=== PATIENT | male | born 1990 | race Caucasian/White ===

== ENCOUNTER 2018-02-11 13:14 | Inpatient (IN) | payer OTHER, MEDICAID, SELFPAY ==
[2018-02-11] VITALS (18 sets, daily range): BP systolic 108–142; BP diastolic 62–96; PULSE 52–109; RESP 10–24; TEMP 36.6–37.4; O2SAT 94–100; BMI 28.9
--- NOTE | 2018-02-11 | PATH_ITS ---
[facility] Accession Number: [id number] . 01 Material submitted: . APPENDIX . 02 Diagnosis: Appendix, Appendectomy: Acute appendicitis with perforation and serositis. Negative for neoplasm. I/02/14/2018 . 02 Electronically signed: . Caleb Hughes MD, PhD, Pathologist NPI- [id number] . 01 Gross description: . Received in formalin, labeled appendix, is an intact appendix (length-8.7 cm, diameter-0.9 cm) with wahl-bansal smooth dull serosa and attached mesoappendix (up to 1.6 cm in depth). The resection margin is received opened. The lumen contains brown solid soft material. The wall is up to 0.3 cm thick. A possible perforation is identified 4.2 cm from the tip opening into the mesoappendix. No nodules, masses or lesions are identified. The resection margin is inked black. Section code: (A1) resection margin en face and three additional serial sections; (A2) one-half of the bivalved tip. ([id number]) /MRV . 02 Pathologist provided ICD-10: K35.2 . 02 CPT . 758493 Performed at: 01 [facility] [address], [place], [place] [id number] MD Reggie Schofield MD Phone: [phone] Performed at: 02 [facility] [address] [place], [place] [id number] MD Luan Carlin MD Phone: [phone]
--- NOTE | 2018-02-11 13:29 | DI.CT.S_ITS ---
PROCEDURE: CT ABDOMEN PELVIS W CON INDICATIONS: Right-sided abdominal pain TECHNIQUE: After the administration of intravenous contrast, 5 mm thick sections acquired from the diaphragm to the symphysis. 5 mm coronal and sagittal reformats were acquired. For radiation dose reduction, the following was used: automated exposure control, adjustment of mA and/or kV according to patient size. COMPARISON: None. FINDINGS: Image quality: Excellent. ABDOMEN: Lung bases: Lung bases are clear. Heart size is normal. Solid organs: Liver is normal in size and enhancement. Gallbladder is within normal limits. Biliary system is non dilated. Pancreas enhances normally. Spleen is normal in size and enhancement. No adrenal nodules. Kidneys demonstrate normal size and enhancement, without hydronephrosis. Peritoneum and bowel: Bowel loops demonstrate normal wall thickness and caliber. No free fluid or air. The appendix is enlarged measuring up to 1 cm in diameter. Mild inflammatory changes and trace fluid noted adjacent to the enlarged appendix. 5 mm 6 mm appendicolith noted in the base of the appendix. Nodes and vessels: No retroperitoneal or mesenteric adenopathy by size criteria. Aorta and inferior vena cava are normal in size. Miscellaneous: No ventral hernias. PELVIS: Genitourinary: Bladder wall thickness is normal. Miscellaneous: No inguinal hernias or adenopathy. Bones: No suspicious bony lesions. No vertebral body compression fractures. IMPRESSION: 1. Findings compatible with acute appendicitis. No evidence of appendiceal rupture. Appendicoliths noted in the base of the appendix. 2. Findings telephoned to Dr. Luevano on 02/11/2018 at 1541 hrs. Dictated by: Em Paris MD, PhD on 02/11/2018 at 15:39 Approved by: Em Paris MD, PhD on 02/11/2018 at 15:43
[2018-02-11 13:31] LABS: Add Manual Diff / Slide Review NO; Basophils Percent Auto 0.3 % (0-2); Hematocrit 39.3 % (41-53); Hemoglobin 13.5 g/dL (13.5-17.5); Lymphocytes Percent Auto 9.4 % (25-40); Mean Corpuscular HGB Conc 34.4 % (30-36); Mean Corpuscular Hemoglobin 33.1 PG (26-34); Mean Corpuscular Volume 96.1 fL (80-100); Monocytes Percent Auto 9.9 % (3-14); Neutrophils Absolute Auto 12000 /uL (3000-5900); Neutrophils Percent Auto 80.4 % (50-75); Platelet Count 257 X10^3/uL (150-400); Red Blood Cell Count 4.09 X10^6/uL (4.5-5.9); Red Cell Distribution Width 12.2 % (11.6-14.8); White Blood Cell Count 14.9 X10^3/uL (4.5-11.0)
--- NOTE | 2018-02-11 13:40 | ED_ITS ---
HPI - Abdominal Pain General Chief Complaint: Abdominal Pain Stated Complaint: RLQ/RO appendicitis Time Seen by Provider: 02/11/18 13:28 Source: patient Mode of arrival: EMS Limitations: no limitations History of Present Illness HPI narrative: Patient is an otherwise healthy 27-year-old male brought in by air lift from [facility] for right lower quadrant pain and concerns for appendicitis. Patient states that his symptoms started yesterday. He states that he has not had anything to eat since yesterday morning because he has not had any appetite. No fevers. States that the pain did start in his left lower quadrant and then became suprapubic in then localized today in his right lower quadrant. Has had some nausea. No urinary symptoms. No change in bowel. No prior abdominal surgeries. Related Data Home Medications Medication Instructions Recorded Confirmed No Known Home Medications 02/11/18 02/11/18 Allergies Allergy/AdvReac Type Severity Reaction Status Date / Time No Known Drug Allergies Allergy Verified 02/11/18 13:19 Review of Systems Constitutional Denies fever(s) Cardiovascular Denies chest pain and Denies dyspnea Respiratory Denies dyspnea Gastrointestinal Gastrointestinal: Reports abdominal pain, Denies change in bowel habits, Denies constipation, Reports nausea and Denies vomiting Genitourinary Denies dysuria Musculoskeletal Denies myalgias and Denies arthralgias Integumentary/Breasts Denies lesions and Denies rash Hematologic/Lymphatic Denies easy bleeding and Denies easy bruising [facility] Medical History Healthy adult (Acute) Surgical History No pertinent past surgical history (Acute) Family History: Reviewed 02/11/18 by Aidan Womack MD Social History household members: family Smoking Status: Current every day smoker alcohol intake: current Exam Initial Vital Signs Initial Vital Signs: Vital Signs Temperature 98.0 F 02/11/18 13:17 Pulse Rate 58 L 02/11/18 13:17 Respiratory Rate 14 02/11/18 13:17 Blood Pressure 118/70 02/11/18 13:17 Pulse Oximetry 98 02/11/18 13:17 Const General: cooperative, healthy appearing, comfortable, well developed, well groomed and No acute distress Orientation: alert, awake and oriented x3 HENMT Head: normal to inspection and normocephalic Resp Effort & Inspection: normal respiratory effort Cardio Rate: regular rate Rhythm: regular rhythm GI Inspection: non-distended Palpation: soft, No firm, guarding (Right lower) and tender (Right lower quadrant with rebound) Skin Lesions: no lesions Rashes: no rashes Neuro General: alert, awake and oriented x3 Extrem General: normal to inspection and capillary refill normal Psych Appearance: grossly normal and well kempt Course Orders Ordered: ED Orders 02/11/18 13:22 Complete Blood Count AUTO DIFF Stat Comprehensive Metabolic Panel Stat Lactate (Lactic Acid) Stat Lipase Stat Partial Thromboplastin Time Stat Prothrombin Time INR Stat 02/11/18 13:29 CT abdomen pelvis w con Stat 02/11/18 16:42 Education, smoking cessation ONGOING Lactated Ringer's (Lactated Ringers) 1,000 mls @ 150 mls/hr IV CONT JAMES Last Admin: 02/11/18 17:20 Dose: 150 mls/hr Cefotetan Disodium/Dextrose (Cefotan) 2 gm in 50 mls @ 100 mls/hr IV PREOP JAMES Sodium Chloride (Normal Saline 0.9%) 250 mls @ 21 mls/hr IV Q24H PRN PRN Reason: Flush Sodium Chloride (Normal Saline 0.9% Flush) 10 ml IV PRN PRN PRN Reason: Flush Discontinued Medications Sodium Chloride (Normal Saline 0.9%) 1,000 mls @ 1,000 mls/hr IV BOLUS ONE Stop: 02/11/18 14:29 Last Infusion: 02/11/18 15:21 Dose: 0 mls/hr Admin: 02/11/18 13:55 Dose: 1,000 mls/hr Sodium Chloride (Normal Saline 0.9%) 1,000 mls @ 125 mls/hr IV CONT JAMES Last Admin: 02/11/18 17:19 Dose: Morphine Sulfate (Morphine Sulfate) 4 mg IV NOW ONE Stop: 02/11/18 18:06 Last Admin: 02/11/18 18:05 Dose: 4 mg Vital Signs - 8 hr 02/11/18 13:17 02/11/18 13:50 02/11/18 14:37 Temperature 98.0 F 98.0 F Pulse Rate 58 L 58 L 71 Respiratory Rate 14 14 16 Blood Pressure 118/70 118/70 Blood Pressure [Left Arm] 110/68 Pulse Oximetry 98 98 100 02/11/18 16:10 02/11/18 16:30 02/11/18 17:30 Temperature 98.0 F 98.1 F Pulse Rate 52 L 55 L 80 Respiratory Rate 16 16 16 Blood Pressure 118/63 137/96 H Blood Pressure [Left Arm] 130/68 Pulse Oximetry 100 98 100 02/11/18 18:56 Temperature 99.4 F Pulse Rate 64 Respiratory Rate 20 Blood Pressure 117/73 Blood Pressure [Left Arm] Pulse Oximetry 100 MDM - Abdominal Pain Lab Data Attestation: I reviewed the patient's lab results. Result diagrams: 02/11/18 13:22 02/11/18 13:22 Lab Results 02/11/18 02/11/18 02/11/18 Range/Units 13:22 13:22 13:22 WBC 14.9 H (4.5-11.0) X10^3/uL RBC 4.09 L (4.5-5.9) X10^6/uL Hgb 13.5 (13.5-17.5) g/dL Hct 39.3 L (41-53) % MCV 96.1 (80-100) fL MCH 33.1 (26-34) PG MCHC 34.4 (30-36) % RDW 12.2 (11.6-14.8) % Plt Count 257 (150-400) X10^3/uL Neut % (Auto) 80.4 H (50-75) % Lymph % (Auto) 9.4 L (25-40) % [place] % (Auto) 9.9 (3-14) % Eos % (Auto) 0.0 L (2-4) % Baso % (Auto) 0.3 (0-2) % Neut # (Auto) 21412 H (9795-7529) /uL PT 13.0 H (10.1-12.7) SECONDS INR 1.2 (0.9-1.3) APTT 30 (26.4-36.2) SECONDS Sodium 140 (137-145) mmol/L Potassium 3.9 (3.4-5.1) mmol/L Chloride 106 (98-107) mmol/L Carbon Dioxide 26 (22-32) mmol/L BUN 10 (9-20) mg/dL Creatinine 0.80 (0.66-1.25) mg/dL Estimated GFR > 60.0 (>60) mL/min BUN/Creatinine Ratio 12.5 (6-22) Glucose 93 (70-100) mg/dL Lactate (0.7-2.1) mmol/L Calcium 8.8 (8.4-10.2) mg/dL Total Bilirubin 1.4 H (0.2-1.3) mg/dL AST 24 (17-59) IU/L ALT 24 (21-72) IU/L Alkaline Phosphatase 60 (38-126) U/L Total Protein 6.5 (6.3-8.2) g/dL Albumin 3.8 (3.5-5.0) g/dL Globulin 2.7 (1.7-4.1) g/dL Albumin/Globulin Ratio 1.4 (1.0-2.8) Lipase 30 (23-300) U/L 02/11/18 Range/Units 13:22 WBC (4.5-11.0) X10^3/uL RBC (4.5-5.9) X10^6/uL Hgb (13.5-17.5) g/dL Hct (41-53) % MCV (80-100) fL MCH (26-34) PG MCHC (30-36) % RDW (11.6-14.8) % Plt Count (150-400) X10^3/uL Neut % (Auto) (50-75) % Lymph % (Auto) (25-40) % [place] % (Auto) (3-14) % Eos % (Auto) (2-4) % Baso % (Auto) (0-2) % Neut # (Auto) (3079-2560) /uL PT (10.1-12.7) SECONDS INR (0.9-1.3) APTT (26.4-36.2) SECONDS Sodium (137-145) mmol/L Potassium (3.4-5.1) mmol/L Chloride (98-107) mmol/L Carbon Dioxide (22-32) mmol/L BUN (9-20) mg/dL Creatinine (0.66-1.25) mg/dL Estimated GFR (>60) mL/min BUN/Creatinine Ratio (6-22) Glucose (70-100) mg/dL Lactate 0.9 (0.7-2.1) mmol/L Calcium (8.4-10.2) mg/dL Total Bilirubin (0.2-1.3) mg/dL AST (17-59) IU/L ALT (21-72) IU/L Alkaline Phosphatase (38-126) U/L Total Protein (6.3-8.2) g/dL Albumin (3.5-5.0) g/dL Globulin (1.7-4.1) g/dL Albumin/Globulin Ratio (1.0-2.8) Lipase (23-300) U/L Imaging Data CT scan - abdomen: Radiologist's impression: PROCEDURE: CT ABDOMEN PELVIS W CON INDICATIONS: Right-sided abdominal pain TECHNIQUE: After the administration of intravenous contrast, 5 mm thick sections acquired from the diaphragm to the symphysis. 5 mm coronal and sagittal reformats were acquired. For radiation dose reduction, the following was used: automated exposure control, adjustment of mA and/or kV according to patient size. COMPARISON: None. FINDINGS: Image quality: Excellent. ABDOMEN: Lung bases: Lung bases are clear. Heart size is normal. Solid organs: Liver is normal in size and enhancement. Gallbladder is within normal limits. Biliary system is non dilated. Pancreas enhances normally. Spleen is normal in size and enhancement. No adrenal nodules. Kidneys demonstrate normal size and enhancement, without hydronephrosis. Peritoneum and bowel: Bowel loops demonstrate normal wall thickness and caliber. No free fluid or air. The appendix is enlarged measuring up to 1 cm in diameter. Mild inflammatory changes and trace fluid noted adjacent to the enlarged appendix. 5 mm 6 mm appendicolith noted in the base of the appendix. Nodes and vessels: No retroperitoneal or mesenteric adenopathy by size criteria. Aorta and inferior vena cava are normal in size. Miscellaneous: No ventral hernias. PELVIS: Genitourinary: Bladder wall thickness is normal. Miscellaneous: No inguinal hernias or adenopathy. Bones: No suspicious bony lesions. No vertebral body compression fractures. IMPRESSION: 1. Findings compatible with acute appendicitis. No evidence of appendiceal rupture. Appendicoliths noted in the base of the appendix. 2. Findings telephoned to Dr. Luevano on 02/11/2018 at 1541 hrs. Dictated by: Em Paris MD, PhD on 02/11/2018 at 15:39 Approved by: Em Paris MD, PhD on 02/11/2018 at 15:43 [facility] Narrative Medical decision making narrative: Patient is an otherwise healthy 27-year-old male with an elevated white blood cell count and right lower quadrant pain with rebound and guarding. Symptoms been going on for approximately 24 hr. Clinically patient has appendicitis. I discussed the case with Dr. Womack prior to obtaining any CT scan. He did evaluate the patient here in the emergency department that a CT scan was ordered which does show an acute appendicitis. Dr. Womack was informed of the findings and will admit the patient for surgical intervention. The patient was informed of the CT scan and also the admission. He expressed understanding and agreement. Patient declined the need for nausea medication and pain medication here in the ER. Discharge Plan Departure Patient Disposition: Admitted As Inpatient Clinical Impression: Acute appendicitis Discharge Date/Time: 02/11/18 16:15 Interventions: ED Discharge Assessment Last Done: 02/11/18 16:15 Admit Date/Time: 02/11/18 16:39 Admit Provider: Aidan Womack
[2018-02-11 13:45] LABS: INR 1.2 (0.9-1.3)
[2018-02-11 13:48] LABS: PTT Partial Thromboplastin Tim 30 SECONDS (26.4-36.2)
[2018-02-11 13:49] LABS: Lactate (Lactic Acid) 0.9 mmol/L (0.7-2.1)
[2018-02-11 13:50] LABS: Alanine Aminotransferase 24 IU/L (21-72); Albumin 3.8 g/dL (3.5-5.0); Albumin Globulin Ratio 1.4 (1.0-2.8); Alkaline Phosphatase 60 U/L (38-126); Aspartate Aminotransferase 24 IU/L (17-59); BUN Creatinine Ratio 12.5 (6-22); Bilirubin Total 1.4 mg/dL (0.2-1.3); Blood Urea Nitrogen 10 mg/dL (9-20); Calcium 8.8 mg/dL (8.4-10.2); Carbon Dioxide 26 mmol/L (22-32); Chloride 106 mmol/L (98-107); Estimated Glomerular Filt Rate > 60.0 mL/min (>60); Globulin 2.7 g/dL (1.7-4.1); Glucose 93 mg/dL (70-100); HEMOLYSIS < 15 (0-50); Lipase 30 U/L (23-300); Potassium 3.9 mmol/L (3.4-5.1); Sodium 140 mmol/L (137-145); Total Protein 6.5 g/dL (6.3-8.2)
[2018-02-11] MEDS: SODIUM CHLORIDE 0.9% 1,000 ML 1000 ML IV (13:55)
[2018-02-11] MEDS: LACTATED RINGERS 1,000 ML 150 ML IV (17:20)
--- NOTE | 2018-02-11 17:50 | PM.HP.1 ---
History of Present Illness Date Patient Seen: 02/11/18 Time Patient Seen: 14:58 Chief complaint: RLQ/RO appendicitis Narrative: Patient is a gentleman with a 1 day history of mid abdominal pain that has moved to his right lower quadrant. He has never had it before. Pain increases with movement. He had vomiting yesterday but not today. Last p.o. intake was yesterday. Pain is a persistent dull ache. Patient History Family & Social History Family History: Reviewed 02/11/18 by Aidan Womack MD Social History: household members family Prior Living Arrangements House Safety & Behavioral: Feels Safe in Current No Environment Been Physically Hurt or No Threatened By a Person Suicidal Ideation Description None Suicide Plan Description No Plan Tobacco & Substance use: Tobacco type cannabis/marijuana Smoking Status Current every day smoker alcohol intake current alcohol intake frequency 3 or more drinks per day Substance Use Type marijuana Meds Home Medications Medication Instructions Recorded Confirmed Type No Known Home Medications 02/11/18 02/11/18 History Allergies Allergy/AdvReac Type Severity Reaction Status Date / Time No Known Drug Allergies Allergy Verified 02/11/18 13:19 Review of Systems Review of Systems Denies any double vision pain is eyes earaches or sore throat. No cough cold or asthma. No tooth aches. No swallowing difficulties. No problems with his heart or murmurs. No black or bloody bowel movements. No hematemesis. No dysuria hematuria or kidney stones. No seizures or blackouts. No numbness or tingling. No problems with his pancreas or thyroid. No unusual bruising or bleeding. Exam Vital Signs (past 8 hours): - 02/11/18 13:17 02/11/18 13:50 02/11/18 14:37 Temperature 98.0 F 98.0 F Pulse Rate 58 L 58 L 71 Respiratory Rate 14 14 16 Blood Pressure 118/70 118/70 Blood Pressure [Left Arm] 110/68 Pulse Oximetry 98 98 100 02/11/18 16:10 02/11/18 16:30 02/11/18 17:30 Temperature 98.0 F 98.1 F Pulse Rate 52 L 55 L 48 L Respiratory Rate 16 16 16 Blood Pressure 118/63 137/96 H Blood Pressure [Left Arm] 130/68 Pulse Oximetry 100 98 100 Oxygen Delivery Method Room Air Narrative Exam Narrative: Operative no apparent distress. Eyes are nonicteric. Pupils equal round reactive to light. Ears without lesion. Lungs are clear to auscultation without rales or rhonchi any could percussion. Heart regular rate and rhythm without murmur gallop. No he lifted thrill. No nodes felt in the neck or supraclavicular areas. Abdomen is flat soft with localized tenderness and fullness in the right lower quadrant. The remainder the abdomen is soft nontender. There is no guarding. Patient is alert and oriented x3. Speech rate and content are appropriate. Affect is appropriate. Objective Labs Result Diagrams: 02/11/18 13:22 02/11/18 13:22 Labs: Laboratory Results - last 24 hr 02/11/18 02/11/18 02/11/18 13:22 13:22 13:22 WBC 14.9 H RBC 4.09 L Hgb 13.5 Hct 39.3 L MCV 96.1 MCH 33.1 MCHC 34.4 RDW 12.2 Plt Count 257 Neut % (Auto) 80.4 H Lymph % (Auto) 9.4 L [place] % (Auto) 9.9 Eos % (Auto) 0.0 L Baso % (Auto) 0.3 Neut # (Auto) 84799 H PT 13.0 H INR 1.2 APTT 30 Sodium 140 Potassium 3.9 Chloride 106 Carbon Dioxide 26 BUN 10 Creatinine 0.80 Estimated GFR > 60.0 BUN/Creatinine Ratio 12.5 Glucose 93 Lactate Calcium 8.8 Total Bilirubin 1.4 H AST 24 ALT 24 Alkaline Phosphatase 60 Total Protein 6.5 Albumin 3.8 Globulin 2.7 Albumin/Globulin Ratio 1.4 Lipase 30 02/11/18 13:22 WBC RBC Hgb Hct MCV MCH MCHC RDW Plt Count Neut % (Auto) Lymph % (Auto) [place] % (Auto) Eos % (Auto) Baso % (Auto) Neut # (Auto) PT INR APTT Sodium Potassium Chloride Carbon Dioxide BUN Creatinine Estimated GFR BUN/Creatinine Ratio Glucose Lactate 0.9 Calcium Total Bilirubin AST ALT Alkaline Phosphatase Total Protein Albumin Globulin Albumin/Globulin Ratio Lipase Assessment & Plan Plan: Assessment/Plan Narrative: Patient with a classic history, physical exam, labs and CT scan for acute appendicitis. Recommend laparoscopic cholecystectomy. I have discussed procedure with him including rationale. Risk of bleeding, infection, hernia discussed. He appears to understand and wishes to proceed. Quality VTE Deep Vein Thrombosis/Pulmonary Embolism Present on Admission: No
--- NOTE | 2018-02-11 17:55 | PM.PREOP ---
Pre-operative Note Interval Note Pre-op Check: Yes History & Physical exam performed today by Physician Changes: No
[2018-02-11] MEDS: MORPHINE 5 MG/ML INJ 4 MG IV (18:05)
--- NOTE | 2018-02-11 18:45 | PC.NURSE ---
Addendum entered by Danielle Gage R.N. 02/11/18 22:09: Patient returned to room from OR at 2205. c/o 7/10 pain and tolerating. No nausea. 3 lap sites, approximately with glue. SCD's on. Original Note: PM Shift Patient taken to OR. Patient c/o 7/10 pain in LRQ. Tender to the touch. Stable and SBA to BR. No n/v, hypoactive bowel tones. Reports be unable to pass gas. Friend at bedside. Pain increased with ambulation to 8/10. 4mg morphine, IV, administered at [address] Womack. pain decreased to 6/10
[2018-02-11] MEDS: CEFOTETAN 2 GM/50 ML PIGGYBACK IV (19:34)
--- NOTE | 2018-02-11 20:30 | SUR.OPER ---
Supine on padded OR bed, head on pillow, left arm padded and tucked at side, legs uncrossed, safety belt at thigh, tape over blanket over lower legs .
[2018-02-11] MEDS: BUPIVACAINE 0.5% (PF) VIAL 30 ML INJ (20:55)
[2018-02-11] MEDS: LACTATED RINGERS 1,000 ML 42 ML IV (20:58)
--- NOTE | 2018-02-11 21:15 | PM.OP.1 ---
Operative Date/Time/Diagnoses Date of procedure: 02/11/18 Time of procedure: 21:15 Pre-op diagnosis: acute appendicitis Post-op diagnosis: other (Perforated appendicitis) Procedure & Clinicians Procedure: Laparoscopic appendectomy Same procedure as scheduled: Yes Indications: A findings consistent preop with acute appendicitis Surgeon: Aidan Womack Click Yes if Unassisted: Yes Anesthesia Type: General Operative Notes Findings: Tip of the appendix was necrotic. Small amount of purulent fluid around it. Closure Type: primary Specimen(s): other (Appendix) Implants & Drains: None Estimated Blood Loss (mL): 10 Blood products transfused: none Procedure in detail: The patient is placed supine on the operating room table and underwent general endotracheal anesthesia. He was prepped and draped in the usual fashion. Local anesthetic was infiltrated and a curvilinear incision made beneath the umbilicus. It was carried down through fascia into the peritoneal cavity. Stay sutures of 0 Polysorb were placed in the fascia. And a son cannula was inserted. The abdomen is insufflated. Two additional ports were placed. One was placed in above the pubis at the edge of the hair-bearing area and 1 in the left lower quadrant. The appendix was identified as a structure adherent to the right sidewall with adhesions. There was purulent fluid in the area. I transected the adhesions sharply and elevated the tip. It was necrotic. The mesoappendix was divided using cautery and sharp scissors. Appendiceal vessel was identified and cauterized to complete occlusion. The base the appendix was tied with an 0 PDS looped and distal to it it was grasped to occlude the lumen. The low the appendix was transected near the grasper and the mucosa cauterized. The appendix was immediately placed in a bag and removed without spillage through the umbilical port. The right lower quadrant near the cecum was irrigated and suctioned free of fluid. Meticulous hemostasis had been maintained throughout. The right lower quadrant and the pelvis were irrigated and suctioned free of fluid. There was no other fluid in the abdomen. The ports were all removed. The stay sutures at the umbilicus were tied after placing a 2 0 [place] between the 2 stay sutures. The wounds were all irrigated and the skin was closed in all areas with a 4 0 Polysorb subcuticular stitch and Dermabond. The patient was awakened and taken recovery room good condition. Condition: stable Disposition: PACU Plan for aftercare: Admit for IV antibiotics.
[2018-02-11] MEDS: fentaNYL 100 MCG/2 ML INJ 50 MCG IV ×2 (21:37→21:42)
--- NOTE | 2018-02-11 22:06 | SUR.PHASEI ---
Pt transfered to acute care floor in stable condition, vss. Pt friend at bedside upon arrival to pt room. bedside report given to acute care rn. transfered care of pt to acute care rn.
[2018-02-11] MEDS: DEXTROSE 5%-0.45% NS 1,000 ML 125 ML IV (22:46)
[2018-02-11] MEDS: MORPHINE 4 MG/ML INJ IV (22:46)
[2018-02-12] VITALS (8 sets, daily range): BP systolic 111–123; BP diastolic 51–78; PULSE 52–78; RESP 15–17; TEMP 36.4–36.9; O2SAT 97–99
[2018-02-12] MEDS: OXYCODONE/ACETAMINOPHEN 5/325 TABLET 2 TAB PO ×4 (00:19→19:27)
--- NOTE | 2018-02-12 00:36 | PC.NURSE ---
Addendum entered by Priscilla Bowman R.N. 02/12/18 05:48: Able to sleep between doses of pain medication. States pain controlled until he has to urinate and then pain increases. Currently pain located in right upper/lower quadrants and severity is 7/10; medicated with Morphine and ice applied for comfort. Original Note: Addendum entered by Priscilla Bowman R.N. 02/12/18 03:22: Able to sleep for few hours; now states abdominal pain severity is 6/10 so medicated with Toradol. Original Note: Patient is alert and oriented. Breath sounds CTA with RA sat of 97%; abdominal pain exacerbated by deep breaths so is breathing shallowly. Instructed in importance of CDB/splinting in order to prevent post op complications. HRR with rate in 50's. Denies nausea. BT absent and denies flatus. Abdomen is soft and tender. 3 lap sites with dermabond; well approximated and without redness or drainage. Voiding per urinal and denies any problems/concerns. Declines offer to reposition at this time. Complains of RLQ abdominal pain so medicated with Percocet as was too early to repeat the Dilaudid. Fall risk is medium; bed alarm not being used. Friend, Yolanda, rooming in.
[2018-02-12] MEDS: metroNIDAZOLE 500 MG/100 ML PIGGYBACK 100 MG IV ×4 (00:59→18:13)
[2018-02-12] MEDS: KETOROLAC 30 MG/ML VIAL IV ×3 (03:19→19:28)
[2018-02-12] MEDS: CEFOTETAN 2 GM/50 ML PIGGYBACK IV ×2 (05:30→19:20)
[2018-02-12] MEDS: MORPHINE 4 MG/ML INJ IV (05:42)
[2018-02-12 06:08] LABS: Add Manual Diff / Slide Review NO; Basophils Percent Auto 0.1 % (0-2); Hematocrit 39.4 % (41-53); Hemoglobin 13.5 g/dL (13.5-17.5); Lymphocytes Percent Auto 2.5 % (25-40); Mean Corpuscular HGB Conc 34.3 % (30-36); Mean Corpuscular Hemoglobin 33.4 PG (26-34); Mean Corpuscular Volume 97.4 fL (80-100); Monocytes Percent Auto 6.3 % (3-14); Neutrophils Absolute Auto 15100 /uL (3000-5900); Neutrophils Percent Auto 91.1 % (50-75); Platelet Count 237 X10^3/uL (150-400); Red Blood Cell Count 4.05 X10^6/uL (4.5-5.9); Red Cell Distribution Width 12.6 % (11.6-14.8); White Blood Cell Count 16.6 X10^3/uL (4.5-11.0)
[2018-02-12] MEDS: DEXTROSE 5%-0.45% NS 1,000 ML 125 ML IV (09:05)
[2018-02-12] MEDS: GABAPENTIN 300 MG CAPSULE PO ×2 (09:07→19:27)
[2018-02-12] MEDS: ENOXAPARIN 40 MG/0.4 ML SYRINGE SUBCUT (09:07)
--- NOTE | 2018-02-12 10:04 | PC.NURSE ---
Addendum entered by Yesi Powell R.N. 02/12/18 13:46: Pt ambulating in [place], gait steady, rates RLQ and right shoulder pain 7/10 given two percocet and 30mg ivp toradol. Pt denies nausea, advanced diet to general for dinner. Pt reports voiding twice into the toilet, unmeasured, requested patient use urinal so staff could measure output, verbalized understanding. Original Note: Pt alert, oriented, rates pain to RLQ 7/10 given two percocet. Tolerating clear liquids without nausea, does not want diet advanced at this time. BT+.
[2018-02-12] MEDS: DOCUSATE 100 MG CAPSULE PO (13:32)
--- NOTE | 2018-02-12 13:39 | PM.PNPO.1 ---
Subjective Date Patient Seen: 02/12/18 Time Patient Seen: 13:00 Interval history: Patient complains of right abdominal pain but much better than yesterday. He is also having some right shoulder pain. He has some mild incisional pain. Eating fine. Exam Vital Signs (past 8 hours): - 02/12/18 06:00 02/12/18 08:00 02/12/18 11:20 Temperature 98.1 F 98.1 F 98.3 F Pulse Rate 78 53 L 53 L Respiratory Rate 17 16 15 Blood Pressure 111/51 L 123/74 113/61 Pulse Oximetry 98 99 97 Oxygen Delivery Method Room Air Oxygen Flow Rate 0 Narrative Exam Narrative: Wounds look fine. Abdomen is flat soft. No redness appreciated. Vital signs noted through the day. Objective Labs Result Diagrams: 02/12/18 05:26 02/11/18 13:22 Labs: Laboratory Results - last 24 hr 02/11/18 02/11/18 02/11/18 13:22 13:22 13:22 WBC RBC Hgb Hct MCV MCH MCHC RDW Plt Count Neut % (Auto) Lymph % (Auto) [place] % (Auto) Eos % (Auto) Baso % (Auto) Neut # (Auto) PT 13.0 H INR 1.2 APTT 30 Sodium 140 Potassium 3.9 Chloride 106 Carbon Dioxide 26 BUN 10 Creatinine 0.80 Estimated GFR > 60.0 BUN/Creatinine Ratio 12.5 Glucose 93 Lactate 0.9 Calcium 8.8 Total Bilirubin 1.4 H AST 24 ALT 24 Alkaline Phosphatase 60 Total Protein 6.5 Albumin 3.8 Globulin 2.7 Albumin/Globulin Ratio 1.4 Lipase 30 02/12/18 05:26 WBC 16.6 H RBC 4.05 L Hgb 13.5 Hct 39.4 L MCV 97.4 MCH 33.4 MCHC 34.3 RDW 12.6 Plt Count 237 Neut % (Auto) 91.1 H Lymph % (Auto) 2.5 L [place] % (Auto) 6.3 Eos % (Auto) 0.0 L Baso % (Auto) 0.1 Neut # (Auto) 36757 H PT INR APTT Sodium Potassium Chloride Carbon Dioxide BUN Creatinine Estimated GFR BUN/Creatinine Ratio Glucose Lactate Calcium Total Bilirubin AST ALT Alkaline Phosphatase Total Protein Albumin Globulin Albumin/Globulin Ratio Lipase Assessment & Plan Post-op Postoperative Procedures Operation Date: 02/11/18 16:00 Actual Procedures Side Surgeon p Laparoscopic Appendectomy Aidan Womack MD Postoperative day: 1 Postoperative status narrative: The patient's white blood cell count is elevated to 16. He seems to be doing well otherwise. Vital signs suggest ability. We will continue his IV antibiotics for at least another day. Keep him overnight. Advance his diet. Decrease his IV. Quality VTE Deep Vein Thrombosis/Pulmonary Embolism Present on Admission: No
[2018-02-13] MEDS: metroNIDAZOLE 500 MG/100 ML PIGGYBACK 100 MG IV ×2 (00:02→06:26)
[2018-02-13] MEDS: SODIUM CHLORIDE 0.9% 250 ML 21 ML IV (00:02)
[2018-02-13] MEDS: SODIUM CHLORIDE 0.9% FLUSH 10 ML IV ×3 (00:03→05:53)
--- NOTE | 2018-02-13 00:16 | PC.NURSE ---
Addendum entered by Priscilla Bowman R.N. 02/13/18 03:02: States pain is now 6/10 and requested/medicated with Toradol. Original Note: Patient is alert and oriented. Breath sounds CTA with RA sat of 98%. HRR but rate flucuates between upper 40's to low 60's. Denies nausea. BT present but denies flatus as yet. Denies dysuria, frequency, urgency or incontinence. Is independent with mobility. Lap sites on abdomen well approximated and without redness or drainage; dermabond intact. Abdomen is tender in right quads. States pain is dull and severity is 5/10 but tolerable and declines need for pain meds or ice pack at this time. Wearing bilateral calf SCD's. Fall risk score is low. Friend rooming in.
[2018-02-13] MEDS: KETOROLAC 30 MG/ML VIAL IV (02:58)
[2018-02-13 03:05] VITALS: BP 117/73; PULSE 61; RESP 16; TEMP 36.5; O2SAT 98
[2018-02-13] MEDS: CEFOTETAN 2 GM/50 ML PIGGYBACK IV (05:49)
[2018-02-13 06:48] LABS: Add Manual Diff / Slide Review NO; Basophils Percent Auto 0.6 % (0-2); Eosinophils Percent Auto 0.2 % (2-4); Hematocrit 37.2 % (41-53); Hemoglobin 12.8 g/dL (13.5-17.5); Lymphocytes Percent Auto 15.8 % (25-40); Mean Corpuscular HGB Conc 34.4 % (30-36); Mean Corpuscular Hemoglobin 33.4 PG (26-34); Mean Corpuscular Volume 97.1 fL (80-100); Monocytes Percent Auto 8.4 % (3-14); Neutrophils Absolute Auto 8600 /uL (3000-5900); Platelet Count 218 X10^3/uL (150-400); Red Blood Cell Count 3.83 X10^6/uL (4.5-5.9); Red Cell Distribution Width 12.3 % (11.6-14.8); White Blood Cell Count 11.5 X10^3/uL (4.5-11.0)
[2018-02-13 07:41] VITALS: BP 118/68; PULSE 55; RESP 18; TEMP 36.6; O2SAT 98
--- NOTE | 2018-02-13 09:00 | PM.DS.1 ---
History of Present Illness Date Patient Seen: 02/13/18 Time Patient Seen: 09:00 Chief complaint: RLQ/RO appendicitis Narrative: Patient is a gentleman with a 1 day history of mid abdominal pain that has moved to his right lower quadrant. He has never had it before. Pain increases with movement. He had vomiting yesterday but not today. Last p.o. intake was yesterday. Pain is a persistent dull ache. Discharge Providers Date of admission: 02/11/18 16:39 Consults: 02/11/18 22:08 Consult to Discharge Planning Routine Comment: Discharge provider: Aidan Womack MD Summary Discharge Diagnosis: Acute perforated appendicitis Hospital Course: Patient underwent a laparoscopic appendectomy. He was treated with broad-spectrum IV antibiotics. His white count normalized. His pain resolved. He was never febrile postop. He was discharged on p.o. Levaquin and Flagyl to continue for 4 additional days. He is scheduled to see me in the office in 1 week. Status at Discharge Cognitive/behavioral status at discharge: Normal Functional status at discharge: independent ambulation Overall status at discharge: patient is back to baseline Time Spent with Patient Less than 30 minutes Exam Vital Signs (past 8 hours): - 02/13/18 03:05 02/13/18 07:41 Temperature 97.7 F 97.8 F Pulse Rate 61 55 L Respiratory Rate 16 18 Blood Pressure 117/73 118/68 Pulse Oximetry 98 98 Oxygen Delivery Method Room Air Oxygen Flow Rate 0 Objective Labs Result Diagrams: 02/13/18 06:25 02/11/18 13:22 Labs: Laboratory Results - last 24 hr 02/13/18 06:25 WBC 11.5 H RBC 3.83 L Hgb 12.8 L Hct 37.2 L MCV 97.1 MCH 33.4 MCHC 34.4 RDW 12.3 Plt Count 218 Neut % (Auto) 75.0 Lymph % (Auto) 15.8 L [place] % (Auto) 8.4 Eos % (Auto) 0.2 L Baso % (Auto) 0.6 Neut # (Auto) 8600 H Discharge Plan Discharge Plan Patient Disposition: Home Discharge comment: You were treated for a perforated appendicitis. I performed a laparoscopic appendectomy. There was nothing unusual about the operation and you have done well. Discharge Med Rec/Prescriptions Prescriptions: New levofloxacin [Levaquin] 500 mg tablet 500 mg PO DAILY Qty: 4 RF: 0 hydrocodone-acetaminophen [[place]] 5-325 mg tablet See Label Instructions .ROUTE .COMPLEX PRN (Reason: painful procedure) Qty: 10 RF: 0 metronidazole 500 mg tablet 500 mg PO TID Qty: 12 RF: 0 Follow up/Referrals: Aidan Womack MD [Physician] - 02/20/18 1:15 pm Provider Discharge Instructions Diet: Diet as Tolerated Activity: Do not lift over 10 lb or straining for at least 4 weeks. This is to prevent you from getting a hernia at your belly button. No pool or tub for at least 2 weeks. Do not operate machinery if you were taking pain medication Skin/Wound/Dressing Care Report to your healthcare provider any signs of infection, such as:: chills, fever, night sweats, increased pain and unusual drainage Visit Report/Discharge Packet Visit Report Forms: Stroke Signs & Symptoms Discharge Data Attending Provider: Aidan Womack Admit Date/Time: 02/11/18 16:39 Quality VTE Deep Vein Thrombosis/Pulmonary Embolism Present on Admission: No
[2018-02-13] MEDS: GABAPENTIN 300 MG CAPSULE PO (09:04)
[2018-02-13] MEDS: ENOXAPARIN 40 MG/0.4 ML SYRINGE SUBCUT (09:04)
--- NOTE | 2018-02-13 11:25 | CM.DPC ---
DCP Discharge Home Per MD, pt is medically stable to d/c home today on oral medications and no identified barriers to discharge. Per RN, pt's friend bedside and pt independent in the room and no concerns at this time. Plan: Patient to d/c home today via friend POV and no SW needs at this time. KYLE Vázquez
== END 2018-02-13 11:39 | disposition home or self-care (01) | DRG 225 ==
LOC: ED 15:43 → AC 16:40
PROVIDERS: Admitting Provider Specialist; Emergency Provider Emergency Medicine; Visit Provider Specialist
PROC: 0DTJ4ZZ Resection of Appendix, Percutaneous Endoscopic Approach (ICD-10-PCS; CPT 44970; principal; 2018-02-11 16:00)
DX: K35.2 Acute appendicitis with generalized peritonitis (principal)
CPT/HCPCS: 36415; 44970; 74177; 80053; 83605; 83690; 85025; 85610; 85730; 88304; 96360; 99221; 99283; 99284; 99406; J1100; J1650; J1885; J2270; J2405; J2704; J3010; Q9967